=== PATIENT | female | born 1935 | race Caucasian/White ===

== ENCOUNTER 2022-07-02 11:09 | Emergency (ER) | payer OTHER ==
[~2022-07-02] VITALS: Ht 157.5 cm; Wt 65.0 kg
[~2022-07-02 11:09] MED LIST: ATE50T PO; DIA5T PO; FLU05NSL; LEVO112T4 PO; POT10T PO; TRIA75TA55 PO
[2022-07-02] MEDS ORDERED: ASPirin 81 mg TAB PO ONE (11:30)
[2022-07-02 11:33] LABS: Basophils # (auto) 0 10 ^3/uL (0-0.2); Basophils % (auto) 0.6 % (0.0-2.0); Eosinophils # (auto) 0.1 10 ^3/uL (0-0.8); Eosinophils % (auto) 1.1 % (0.0-7.0); Hematocrit 41.1 % (36.0-46.0); Hemoglobin 13.7 g/dL (12.2-16.2); Lymphocytes # (auto) 2.9 10 ^3/uL (0.4-5.4); Lymphocytes % (auto) 45.8 % (10.0-50.0); Mean Corpuscular Hemoglobin 31.5 pg (28.0-32.0); Mean Corpuscular Hgb Conc. 33.3 g/dL (32.0-36.0); Mean Corpuscular Volume 94.6 fL (80.0-100.0); Monocytes # (auto) 0.6 10 ^3/uL (0-1.3); Monocytes % (auto) 9.3 % (0.0-12.0); Neutrophils # (auto) 2.7 10 ^3/uL (1.6-8.6); Neutrophils % (auto) 43.2 % (37.0-80.0); Nucleated Red Blood Cells % 0.1 %; Red Blood Cells 4.35 10^6/uL (4.0-5.20); Red Cell Distribution Width 13.1 % (11.8-14.3); White Blood Cell 6.3 10^3/uL (4.4-10.8)
[2022-07-02 12:03] LABS: Potassium 3.6 mmol/L (3.5-5.1)
[2022-07-02 12:13] LABS: Albumin 4.1 g/dL (3.4-5.0); BUN/Creatinine Ratio 16.2 (10.0-20.0); Bilirubin, Total 1.3 mg/dL (0.2-1.0); Calcium 9.7 mg/dL (8.5-10.1); Magnesium 2.2 mg/dL (1.6-2.6); Total Protein 7.1 g/dL (6.4-8.2)
[2022-07-02 13:07] LABS: INR 1.05 (0.9-1.15)
[2022-07-02 14:45] VITALS: BP 138/72
== END 2022-07-02 14:51 | disposition home or self-care (01) ==
LOC: ER 11:09
DX: R07.89 Other chest pain (principal); I10 Essential (primary) hypertension; R42 Dizziness and giddiness; Z90.49 Acquired absence of other specified parts of digestive tract; Z90.710 Acquired absence of both cervix and uterus; Z87.891 Personal history of nicotine dependence
CPT/HCPCS: 36415; 71046; 80053; 83735; 84484; 85025; 85610; 85730; 93005

== ENCOUNTER 2022-10-13 09:47 | Inpatient (IN) | payer OTHER ==
[~2022-10-13] VITALS: Ht 160 cm; Wt 65.9 kg
[2022-10-13 10:40] LABS: Basophils # (auto) 0 10 ^3/uL (0-0.2); Basophils % (auto) 0.5 % (0.0-2.0); Eosinophils # (auto) 0.1 10 ^3/uL (0-0.8); Eosinophils % (auto) 0.7 % (0.0-7.0); Hematocrit 44.1 % (36.0-46.0); Hemoglobin 14.4 g/dL (12.2-16.2); Lymphocytes % (auto) 40.9 % (10.0-50.0); Mean Corpuscular Hemoglobin 31.3 pg (28.0-32.0); Mean Corpuscular Hgb Conc. 32.6 g/dL (32.0-36.0); Monocytes # (auto) 0.8 10 ^3/uL (0-1.3); Monocytes % (auto) 10.2 % (0.0-12.0); Neutrophils # (auto) 3.5 10 ^3/uL (1.6-8.6); Neutrophils % (auto) 47.7 % (37.0-80.0); Nucleated Red Blood Cells % 0.1 %; Red Blood Cells 4.59 10^6/uL (4.0-5.20); Red Cell Distribution Width 12.6 % (11.8-14.3); White Blood Cell 7.4 10^3/uL (4.4-10.8)
[2022-10-13 10:57] LABS: INR 1.06 (0.9-1.15); Partial Thromboplastin Time 30.7 SEC (24.5-34.5); Prothrombin Time 11.1 sec (9.3-11.8)
[2022-10-13] MEDS ORDERED: MECLIZINE HCL 25 MG TAB PO ONE (11:00)
[2022-10-13] MEDS ORDERED: SODIUM CHLORIDE 0.9% 1,000 ML IV ONE (11:00)
[2022-10-13 11:03] LABS: Calcium 9.9 mg/dL (8.5-10.1); Magnesium 2.7 mg/dL (1.6-2.6); Potassium 4.1 mmol/L (3.5-5.1)
[2022-10-13 11:19] LABS: BUN/Creatinine Ratio 17.8 (10.0-20.0); Total Protein 7.4 g/dL (6.4-8.2)
[2022-10-13 11:19] LABS: Urine Bacteria NONE SEEN /hpf (None Seen); Urine Blood Negative /uL (Negative); Urine Clarity Clear (Clear); Urine Color Yellow (Yellow); Urine Hyaline Cast FEW /lpf (0 - 2); Urine Protein, UAD Negative (Negative); Urine Specific Gravity 1.017 (1.001-1.035); Urine Urobilinogen Normal (Negative); Urine WBC <1 /hpf (0 - 5)
[2022-10-13] MEDS ORDERED: DOPamine 1600MCG/ML D5W 250 ML IV ONE (11:45)
[2022-10-13 12:01] VITALS: PULSE 48; RESP 13; O2SAT 99
[2022-10-13] MEDS ORDERED: ACETAMINOPHEN 325 MG TAB PO PRN (15:15)
[2022-10-13] MEDS ORDERED: MORPHINE SULFATE INJ 2 MG/ml SYRG IV PRN (15:15)
[2022-10-13] MEDS ORDERED: ONDANSETRON HCL 4 MG/2 ML VIAL IV PRN (15:15)
[2022-10-13] MEDS ORDERED: NITROGLYCERIN 0.4 MG SL TAB SL PRN (15:15)
[2022-10-13] MEDS ORDERED: GLUCAGON EMERG KIT 1mg/1ml IV ONE (15:30)
[2022-10-13] MEDS ORDERED: GLUCAGON EMERG KIT 1mg/1ml SUBCUT ONE (15:45)
[2022-10-13 19:37] VITALS: PULSE 72; RESP 14; O2SAT 96
[2022-10-14 07:20] VITALS: PULSE 74; RESP 14; O2SAT 95
[2022-10-14] MEDS ORDERED: FAMOTIDINE 20 MG TAB PO SCH (10:00)
[2022-10-14 16:37] VITALS: BP 165/76; PULSE 74; RESP 11; TEMP 98; O2SAT 96
== END 2022-10-14 16:45 | disposition home or self-care (01) | DRG 310 ==
LOC: ER 09:47 → OVERFLOW 15:08
PROVIDERS: ADMIT Hospitalist; ATTEND Hospitalist
DX: R00.1 Bradycardia, unspecified (principal); E03.9 Hypothyroidism, unspecified; F41.9 Anxiety disorder, unspecified; I10 Essential (primary) hypertension; I25.10 Atherosclerotic heart disease of native coronary artery without angina pectoris; J44.9 Chronic obstructive pulmonary disease, unspecified; M47.812 Spondylosis without myelopathy or radiculopathy, cervical region; T44.7X5A Adverse effect of beta-adrenoreceptor antagonists, initial encounter; Z87.891 Personal history of nicotine dependence; Z90.710 Acquired absence of both cervix and uterus; Y92.89 Other specified places as the place of occurrence of the external cause; Z90.49 Acquired absence of other specified parts of digestive tract
CPT/HCPCS: 36415; 70450; 71045; 80053; 81001; 83735; 83880; 84439; 84443; 84484; 85025; 85610; 85730; 93005; 93306; 96365; 99291; G0378